=== PATIENT | female | born 1945 | race Two or more races ===

== ENCOUNTER 2021-09-25 21:21 | Emergency (ER) | payer OTHER ==
[2021-09-25 21:29] VITALS: BP 153/73; PULSE 76; TEMP 98.1
[2021-09-25] MEDS ORDERED: LIDOCAINE PATCH REMOVAL MC SCH (22:00)
[2021-09-25 22:30] LABS: EPI CELLS 3 /uL (0-25.1); HYALINE CASTS 0 /uL (0-3.1); URINE APPEARANCE CLEAR; URINE BACTERIA 17 /uL (0-1359); URINE BILIRUBIN NEGATIVE (NEGATIVE); URINE COLOR YELLOW; URINE GLUCOSE (UA) NEGATIVE (NEGATIVE); URINE KETONE NEGATIVE (NEGATIVE); URINE LEUK ESTERASE TRACE (NEGATIVE); URINE NITRITE NEGATIVE (NEGATIVE); URINE PROTEIN NEGATIVE (NEGATIVE); URINE RBC 1 /uL (0-23.9); URINE UROBILINOGEN 0.2 mg/dL (0.2-1.0); URINE WBC 27 /uL (0-25.8)
[2021-09-25] MEDS ORDERED: ACETAMINOPHEN 325 MG TABLET (FP) PO ONE (22:36)
[2021-09-25] MEDS ORDERED: LIDOCAINE 5% TOPICAL PATCH TP ONE (22:36)
[2021-09-25] MEDS ORDERED: LIDOCAINE 5% TOPICAL PATCH ONE (22:37)
[2021-09-25] MEDS ORDERED: ACETAMINOPHEN 325 MG TABLET (FP) ONE (22:37)
[2021-09-25 22:58] LABS: EOS % 3.9 % (0-4.5); HEMOGLOBIN 10.9 GM/dL (10.7-15.3); LYMPH % 46.5 % (8-40); MCH 27.1 pg (25.7-33.7); MEAN PLT VOLUME 8.1 fl (7.5-11.1); MONO % 5.8 % (3.8-10.2); NEUT % 42.8 % (42.8-82.8); PLATELET COUNT 242 10^3/uL (134-434); RBC 4.02 M/mm3 (3.60-5.2); RDW 14.2 % (11.6-15.6); WHITE BLOOD COUNT 6.9 K/mm3 (4.0-10.0)
[2021-09-25 23:20] LABS: ALBUMIN 3.7 g/dl (3.4-5.0); BLOOD UREA NITROGEN 14.3 mg/dL (7-18); CALCIUM 9.4 mg/dL (8.5-10.1)
[2021-09-25 23:23] LABS: CREATININE 1.1 mg/dL (0.55-1.3)
[2021-09-25 23:25] LABS: BILIRUBIN,TOTAL 0.2 mg/dL (0.2-1); TOT PROT 7.5 g/dl (6.4-8.2)
== END 2021-09-26 00:02 | disposition home or self-care (01) ==
LOC: JER 21:21
DX: N30.00 Acute cystitis without hematuria (principal)
CPT/HCPCS: 36415; 70450-TC; 72125-TC; 80053; 81003; 83690; 85025; 99285-25